=== PATIENT | male | born 1945 | race Caucasian/White ===

== ENCOUNTER 2018-05-25 14:55 | Outpatient (CLI) | payer MEDICARE, OTHER ==
[~2018-05-25 14:55] MED LIST: ACYCLOVIR200 MG ORAL; ATORVASTATIN CA10 MG ORAL; DEXILANT30 MG ORAL; FLOMAX0.4 MG ORAL; PREZISTA400 MG ORAL; RITONAVIR PO; TRUVADA1 TAB ORAL
--- NOTE | 2018-05-25 16:02 | Diagnostic Imaging Report ---
Indication: Foot pain Comparison: None Findings: 3 views of the left foot were obtained. No acute fractures, malalignment, erosions or periostitis are identified. Soft tissues are unremarkable. Impression: No acute findings
== END 2018-05-25 16:55 | disposition home or self-care (01) ==
LOC: RAD 14:55
DX: M25.572 Pain in left ankle and joints of left foot (principal); B20 Human immunodeficiency virus [HIV] disease